=== PATIENT | female | born 1965 | race Caucasian/White ===

== ENCOUNTER 2021-12-15 17:24 | Observation (INO) | payer SELFPAY ==
[2021-12-15 18:07] LABS: #Eosinphils 0.1 10x3/uL (0.0-0.5); #Monocytes 0.5 10x3/uL (0.0-1.1); #Neutrophils 6.3 10x3/uL (1.5-8.4); %Basophils 0.4 % (0.0-2.0); %Lymphocytes 22.9 % (18.0-47.0); %Neutrophils 70.4 % (40.0-75.0); Hemoglobin 12.6 g/dL (12.0-15.5); Mean Corpuscular HGB CONC 32.1 g/dL (32.0-36.0); Mean Corpuscular Hemoglobin 24.2 pg (27.0-33.0); Mean Corpuscular Volume 75.4 fl (81.6-98.3); Mean Platelet Volume 9.7 fl (7.4-10.4); Platelet Count 299 10x3/uL (150-450); RBC Distribution Width 14.9 % (11.5-14.5); Red Blood Cell (RBC) Count 5.21 10x6/uL (3.90-5.03)
[2021-12-15 18:19] LABS: ALT (SGPT) 15 U/L (8-55); AST (SGOT) 17 U/L (5-34); Alkaline Phosphatase 56 U/L (40-110); Anion Gap 14 mmol/L (10-20); BUN (Urea Nitrogen) 19 mg/dL (9.8-20.1); Bilirubin, Total 0.6 mg/dL (0.2-1.2); Calc. Creatinine Clearance 0 mL/min (70-130); Calcium 9.8 mg/dL (7.8-10.44); Carbon Dioxide 26 mmol/L (22-29); Chloride 104 mmol/L (98-107); Globulin 2.6 g/dL (2.4-3.5); Glucose 130 mg/dL (70-105); Potassium 3.7 mmol/L (3.5-5.1); Protein, Total 7.6 g/dL (6.0-8.3); Sodium 140 mmol/L (136-145)
[2021-12-15 18:29] LABS: Prothrombin Time 10.8 sec (9.5-12.1)
[2021-12-15 18:35] LABS: Acetaminophen Less than 10.0 mcg/mL (10.0-30.0); Alcohol Less than 10 mg/dL (Less than 10); CK (CPK) 141 U/L (29-168); Salicylate Less than 8.0 mg/dL (15.0-30.0)
[2021-12-15 19:22] LABS: Bilirubin Neg (Negative); Blood, Urine Negative (Negative); Clarity Clear (Clear); Glucose, Urine (Dipstick) Normal (Negative); Ketone, Urine Negative (Negative); Leukocyte 100 (Negative); Nitrite Negative (Negative); Protein, Urine (Dipstick) Negative (Neg-Trace); Urobilinogen Normal mg/dL (Less than 2)
[2021-12-15 19:30] LABS: Amphetamine Not Detected (NotDetected); Barbiturates Screen Not Detected (NotDetected); Benzodiazepine Screen Not Detected (NotDetected); Cocaine Metabolite Screen Not Detected (NotDetected); Methadone Not Detected (NotDetected); Methamphetamine Not Detected (NotDetected); Opiate Screen Not Detected (NotDetected); Oxycodone Screen Not Detected (NotDetected); Phencyclidine (PCP) Not Detected (NotDetected); THC/Cannabinoid Screen Not Detected (NotDetected); Tricyclic Screen Not Detected (NotDetected)
[2021-12-15] MEDS ORDERED: Aspirin Chewable 81 MG TAB ONE (19:45)
[2021-12-15 19:48] LABS: Bacteria/HPF None Seen HPF (None Seen); RBC/HPF None Seen HPF (0-3); Squamous Epithelial 0-3 HPF (0-3); WBC/HPF 0-3 HPF (0-3)
[2021-12-15] MEDS ORDERED: Ketorolac Tromethamine 30 MG/ML VIAL ONE (20:12)
[2021-12-15] MEDS ORDERED: Ondansetron PF 4 MG/2 ML Vial IVP PRN (20:12)
[2021-12-15] MEDS ORDERED: HYDROcodone/Acetaminophen 5/325 mg Tablet PO PRN (20:12)
[2021-12-15] MEDS ORDERED: Zolpidem Tartrate 5 MG TAB PO PRN (20:12)
[2021-12-15] MEDS ORDERED: Guaifenesin DM 100-10/5 ML UDCUP PO PRN (20:12)
[2021-12-15] MEDS ORDERED: Senokot S 8.6-50 MG TAB PO PRN (20:12)
[2021-12-15] MEDS ORDERED: Calcium Carbonate 500 MG ChewTAB PO PRN (20:12)
[2021-12-15] MEDS ORDERED: Acetaminophen 325 MG TAB PO PRN (20:12)
[2021-12-15] MEDS ORDERED: Pregabalin 75 MG CAP PO SCH ×2 (21:00→22:45)
[2021-12-15 21:12] LABS: Troponin I Less than 0.010 ng/mL (< 0.028)
[2021-12-15 22:24] VITALS: BMI 21.2
[2021-12-15] MEDS ORDERED: Amitriptyline HCl 10 MG TAB PO SCH (22:45)
[2021-12-15] MEDS ORDERED: Lidocaine 5% Patch TD SCH (23:00)
[2021-12-16 00:44] LABS: Troponin I Less than 0.010 ng/mL (< 0.028)
[2021-12-16 05:51] LABS: Anion Gap 13 mmol/L (10-20); BUN (Urea Nitrogen) 18 mg/dL (9.8-20.1); Calc. Creatinine Clearance 83 mL/min (70-130); Carbon Dioxide 25 mmol/L (22-29); Cardiac Risk 4.3 (Less than 4.5); Chloride 107 mmol/L (98-107); Cholesterol 207 mg/dl (< 200 Desired); Glucose 87 mg/dL (70-105); HDL Cholesterol 48 mg/dL (>60 Neg Risk); LDL Cholesterol, Calculated 143 mg/dL; Magnesium 2.2 mg/dL (1.6-2.6); Potassium 3.7 mmol/L (3.5-5.1); Sodium 141 mmol/L (136-145); Triglycerides 79 mg/dL (Less than 150)
[2021-12-16 06:04] LABS: Free T4 (Free Thyroxine) 1.02 ng/dL (0.70-1.48); Thyroid Stimulating Hormone 1.1875 uIU/mL (0.35-4.94)
[2021-12-16] MEDS ORDERED: Pregabalin 75 MG CAP PO SCH (09:00)
[2021-12-16] MEDS ORDERED: LIDOCAINE Patch Removal TOP SCH (11:00)
[2021-12-16 12:32] LABS: Hemoglobin A1c 5.7 % (4.0-6.0)
[2021-12-16 17:50] VITALS: BP 108/68; TEMP 98.1
[2021-12-16] MEDS ORDERED: Amitriptyline HCl 10 MG TAB PO SCH (21:00)
== END 2021-12-16 17:34 | disposition home or self-care (01) ==
LOC: CSHERS 17:24 → EDSEX 17:24 → CSHTELE 22:20
PROVIDERS: ADMIT Student in an Organized Health Care Education/Training Program; ATTEND Internal Medicine
DX: R20.0 Anesthesia of skin (principal); R20.2 Paresthesia of skin; K58.9 Irritable bowel syndrome, unspecified; E78.5 Hyperlipidemia, unspecified; R73.9 Hyperglycemia, unspecified; Z20.822 Contact with and (suspected) exposure to COVID-19; Z88.1 Allergy status to other antibiotic agents
CPT/HCPCS: 36415; 70450; 70553; 71045; 80048; 80053; 80061; 80306; 80307; 81003; 81015; 82550; 82607; 82746; 83036; 83735; 84439; 84443; 84484; 85025; 85610; 85730; 93005; 93306; 93880; 96374; J1885; U0003; U0005

== ENCOUNTER 2022-08-08 09:53 | Outpatient (CLI) | payer BC ==
[~2022-08-08 09:53] MED LIST: Iopamidol 300 61% 100 ML VIAL FS ONE
== END 2022-08-08 09:54 | disposition home or self-care (01) ==
LOC: CSHCT 09:53
PROVIDERS: ATTEND Physician Assistant Medical
DX: K57.92 Diverticulitis of intestine, part unspecified, without perforation or abscess without bleeding (principal); R10.30 Lower abdominal pain, unspecified; R19.5 Other fecal abnormalities
CPT/HCPCS: 74177

== ENCOUNTER 2022-11-04 17:44 | Emergency (ER) | payer BC ==
[2022-11-04] MEDS ORDERED: Ketorolac Tromethamine 30 MG/ML VIAL ONE (18:56)
[2022-11-04 19:30] LABS: #Basophils 0.1 10x3/uL (0.0-0.2); #Monocytes 0.4 10x3/uL (0.0-1.1); #Neutrophils 6.3 10x3/uL (1.5-8.4); %Basophils 0.6 % (0.0-2.0); %Eosinophils 0.5 % (0.0-6.0); %Lymphocytes 21.7 % (18.0-47.0); %Monocytes 4.2 % (0.0-10.0); %Neutrophils 72.9 % (40.0-75.0); Hemoglobin 13.3 g/dL (12.0-15.5); Mean Corpuscular HGB CONC 32.4 g/dL (32.0-36.0); Mean Corpuscular Volume 74.2 fl (81.6-98.3); Mean Platelet Volume 10.6 fl (7.4-10.4); Platelet Count 286 10x3/uL (150-450); RBC Distribution Width 15.6 % (11.5-14.5); Red Blood Cell (RBC) Count 5.54 10x6/uL (3.90-5.03); White Blood Cell (WBC) Count 8.6 10x3/uL (3.5-10.5)
[2022-11-04 19:46] LABS: ALT (SGPT) 13 U/L (8-55); AST (SGOT) 15 U/L (5-34); Albumin 4.8 g/dL (3.5-5.0); Alkaline Phosphatase 61 U/L (40-110); Anion Gap 16 mmol/L (10-20); BUN (Urea Nitrogen) 17 mg/dL (9.8-20.1); Bilirubin, Total 0.5 mg/dL (0.2-1.2); Calc. Creatinine Clearance 0 mL/min (70-130); Calcium 9.6 mg/dL (7.8-10.44); Carbon Dioxide 24 mmol/L (22-29); Chloride 105 mmol/L (98-107); Estimated GFR 92; Globulin 2.5 g/dL (2.4-3.5); Glucose 105 mg/dL (70-105); Lipase 21 U/L (8-78); Magnesium 2.3 mg/dL (1.6-2.6); Potassium 3.8 mmol/L (3.5-5.1); Protein, Total 7.3 g/dL (6.0-8.3); Sodium 141 mmol/L (136-145)
[2022-11-04 20:33] LABS: Bilirubin Neg (Negative); Blood, Urine 10 (Negative); Glucose, Urine (Dipstick) Normal (Negative); Ketone, Urine Negative (Negative); Leukocyte 500 (Negative); Nitrite Negative (Negative); Protein, Urine (Dipstick) Negative (Neg-Trace); Urobilinogen Normal mg/dL (Less than 2)
[2022-11-04 20:35] LABS: Clarity Clear (Clear)
[2022-11-04 20:37] LABS: Bacteria/HPF 1+ HPF (None Seen); RBC/HPF 0-3 HPF (0-3); Squamous Epithelial 0-3 HPF (0-3)
== END 2022-11-04 20:59 | disposition home or self-care (01) ==
LOC: CSHERS 17:44
DX: N39.0 Urinary tract infection, site not specified (principal)
CPT/HCPCS: 76700; 80053; 81003; 81015; 83605; 83690; 83735; 84484; 85025; 85379; 87086; 93005; 96374; J1885

== ENCOUNTER 2022-11-11 19:58 | Emergency (ER) | payer BC ==
[2022-11-11 22:23] LABS: #Basophils 0.1 10x3/uL (0.0-0.2); #Monocytes 0.5 10x3/uL (0.0-1.1); #Neutrophils 7.7 10x3/uL (1.5-8.4); %Basophils 0.6 % (0.0-2.0); %Eosinophils 0.3 % (0.0-6.0); %Monocytes 5.1 % (0.0-10.0); %Neutrophils 76.6 % (40.0-75.0); Hemoglobin 13.8 g/dL (12.0-15.5); Mean Corpuscular HGB CONC 32.3 g/dL (32.0-36.0); Mean Corpuscular Hemoglobin 23.9 pg (27.0-33.0); Mean Corpuscular Volume 73.9 fl (81.6-98.3); Platelet Count 335 10x3/uL (150-450); RBC Distribution Width 15.5 % (11.5-14.5); Red Blood Cell (RBC) Count 5.78 10x6/uL (3.90-5.03); White Blood Cell (WBC) Count 10.1 10x3/uL (3.5-10.5)
[2022-11-11 22:33] LABS: ALT (SGPT) 13 U/L (8-55); AST (SGOT) 15 U/L (5-34); Alkaline Phosphatase 68 U/L (40-110); Anion Gap 14 mmol/L (10-20); BUN (Urea Nitrogen) 16 mg/dL (9.8-20.1); Bilirubin, Total 0.4 mg/dL (0.2-1.2); Calc. Creatinine Clearance 0 mL/min (70-130); Calcium 9.9 mg/dL (7.8-10.44); Carbon Dioxide 26 mmol/L (22-29); Chloride 101 mmol/L (98-107); Estimated GFR 87; Globulin 2.9 g/dL (2.4-3.5); Glucose 105 mg/dL (70-105); Potassium 4.3 mmol/L (3.5-5.1); Protein, Total 7.9 g/dL (6.0-8.3); Sodium 137 mmol/L (136-145)
[2022-11-11 23:09] LABS: Bilirubin Neg (Negative); Blood, Urine 10 (Negative); Clarity Clear (Clear); Glucose, Urine (Dipstick) Normal (Negative); Ketone, Urine Negative (Negative); Leukocyte 500 (Negative); Nitrite Negative (Negative); Protein, Urine (Dipstick) Negative (Neg-Trace); Urobilinogen Normal mg/dL (Less than 2)
[2022-11-11 23:17] LABS: Bacteria/HPF Rare-Few HPF (None Seen)
[2022-11-12] MEDS ORDERED: Lidocaine 1% PF 5 ML VIAL ONE
[2022-11-12] MEDS ORDERED: cefTRIAXone (ROCEPHIN) 1 GM VIAL ONE
== END 2022-11-12 01:30 | disposition home or self-care (01) ==
LOC: CSHERS 19:58
DX: N30.01 Acute cystitis with hematuria (principal)
CPT/HCPCS: 36415; 74176; 80053; 81003; 81015; 82533; 84146; 85025; 85652; 87086; 96372; J0696

== ENCOUNTER 2023-08-31 09:23 | Outpatient (CLI) | payer BC | END 2023-08-31 09:24 | disposition home or self-care (01) | LOC: CSHMAMMO 09:23 | PROVIDERS: ATTEND Nurse Practitioner Family | DX: N63.10 Unspecified lump in the right breast, unspecified quadrant (principal) | CPT/HCPCS: 77066; G0279 ==